=== PATIENT | male | born 1960 | race Caucasian/White ===

== ENCOUNTER 2024-07-29 17:04 | Inpatient (IN) | payer MEDICARE, MEDICAID, SELFPAY ==
[2024-07-29] VITALS (8 sets, daily range): BP systolic 137–176; BP diastolic 83–93; PULSE 91–936; RESP 17–24; TEMP 37.2–38; O2SAT 92–97; BMI 24.6
--- NOTE | 2024-07-29 17:33 | EKG_ITS ---
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
--- NOTE | 2024-07-29 17:33 | XR_ITS ---
Examination: AP chest single view Technique AP portable sitting chest single view Standing time: July 29, 2024 1647 hours Comparison May 03, 2023 INDICATION: Coughing beginning 3 days ago. FINDINGS: Retrocardiac gastric hernia Minimal rounding left ventricle Accentuation of basilar bronchovascular markings. No lobar pneumonia or pulmonary edema IMPRESSION: Mild basilar bronchitis pattern
--- NOTE | 2024-07-29 17:33 | PD.EDRME ---
Rapid Medical Screening Exam RME Arrival date/time: 07/29/24 17:04 Chief Complaint: Shortness of Breath/Dyspnea Time Seen by Provider: 07/29/24 17:26 Vital signs: Vital Signs Temperature 100.4 F 07/29/24 17:30 Pulse Rate 115 H 07/29/24 17:30 Respiratory Rate 24 H 07/29/24 17:30 Blood Pressure 176/93 H 07/29/24 17:30 Pulse Oximetry (%) 93 L 07/29/24 17:30 Oxygen Delivery Method Room Air 07/29/24 17:30 RME Narrative: Shortness of breath/asthma flare the past 3-4 days, fever started today.
[2024-07-29 18:21] LABS: Lactate (Lactic Acid) 1.1 mMol/L (0.4-2.0)
[2024-07-29 18:31] LABS: Basophils # (Auto) 0.1 Thou/mm3 (0.0-0.2); Basophils % (Auto) 1 % (0-2.5); Eosinophils # (Auto) 0.2 Thou/mm3 (0.0-0.5); Eosinophils % (Auto) 2 % (0-10); Hematocrit 42.7 % (41.0-53.0); Hemoglobin 14.9 g/dL (13.5-16.0); Immature Granulocytes % (Auto) 0 % (0-0); Immature Granulocytes Auto 0.02 Thou/mm3 (0.00-0.00); Lymphocytes # (Auto) 0.5 Thou/mm3 (1.0-4.8); Lymphocytes % (Auto) 6 % (10-50); Mean Corpuscular HGB Conc 34.9 g/dl (31.0-37.0); Mean Corpuscular Hemoglobin 31.9 pg (25.0-35.0); Mean Corpuscular Volume 91 fL (80-100); Monocytes # (Auto) 1.5 Thou/mm3 (0.0-0.8); Monocytes % (Auto) 18 % (0-12); Neutrophils # (Auto) 6.2 Thou/mm3 (1.8-7.7); Neutrophils % (Auto) 73 % (37-80); Nucleated Red Blood Cell % 0 /100 WBC (0); Platelet Count 265 Thou/mm3 (140-440); RDW Standard Deviation 47.8 fL (35.1-43.9); Red Blood Count 4.67 Miln/mm3 (4.50-5.90); White Blood Count 8.5 Thou/mm3 (3.8-10.6)
[2024-07-29 18:40] LABS: B-Type Natriuretic Peptide 20 pg/mL (0-100)
[2024-07-29 18:50] LABS: Alanine Aminotransferase 26 U/L (10-49); Albumin, Serum 4.5 gm/dL (3.4-4.8); Albumin/Globulin Ratio 1.6 (1.2-2.2); Alkaline Phosphatase 116 U/L (46-116); Anion Gap 9 (7-16); Aspartate Amino Transferase 29 U/L (0-34); BUN/Creatinine Ratio 8 Ratio (12-20); Bilirubin,Total 0.5 mg/dL (0.3-1.2); Blood Urea Nitrogen 8 mg/dL (9-23); Calcium 9.8 mg/dL (8.3-10.6); Calcium (Corrected) 9.8 mg/dL (8.5-10.1); Carbon Dioxide 23.8 mMol/L (20.0-31.0); Chloride 102 mMol/L (98-107); Estimated Creatinine Clearance 64.1 mL/min (>60); Globulin 2.8 gm/dL (2.3-3.5); Glucose 134 mg/dL (74-106); Osmolality,Calculated 270 (275-295); Potassium 3.9 mMol/L (3.4-5.1); Procalcitonin 0.12 ng/ml (0.0-0.49); Sodium 135 mMol/L (136-145); Total Protein 7.3 gm/dL (5.7-8.2); Troponin I < 0.020 ng/mL (0.0-0.045); eGFR > 60 See Note
[2024-07-29] MEDS: IBUPROFEN TAB 600 MG TABLET PO (19:09)
[2024-07-29] MEDS: cefTRIAXone/D5w 1gm IV premix 1 GM/50 ML BAG IV (19:18)
--- NOTE | 2024-07-29 19:22 | PD.EDSOB ---
ED SOB =RME/HPI General Chief Complaint: Shortness of Breath/Dyspnea Stated Complaint: SHORTNESS OF BREATH Time Seen by Provider: 07/29/24 17:26 Arrival date/time: 07/29/24 17:04 RME / HPI RME / HPI Narrative: Shortness of breath/asthma flare the past 3-4 days, fever started today. This section includes all my notes and documentations, including HPI, PE, and ED course. Jonathan Kelley MD HPI: 64-year-old male here with about a week history of worsening cough, productive cough, purulent sputum, and dyspnea. May have asthma and/or COPD. He also reports subjective fever and chills and bodyaches. No other complaints. ROS: All negative except as documented in HPI. Physical Exam: General: Alert and oriented. In moderate respiratory distress. Fever and hypoxia noted. Eyes: Conjunctivae and lids clear. ENT: No nasal congestion. Neck: Supple. Heart: RRR. Lungs: Moderate respiratory distress. Severely decreased air movement with diffuse wheezing. Abdomen: Soft and nontender. Back: No CVA tenderness. Skin: Warm and dry. Neuro: Alert and oriented X 3. I reviewed all diagnostic test results. My interpretation of the EKG is sinus rhythm with no acute ST?T changes. My interpretation of the chest x-ray is increased bronchial markings. Blood tests and urine tests unremarkable. COVID/influenza negative. At this point, diagnoses include acute respiratory failure with hypoxia and COPD exacerbation. Treatment here included IV fluid and Tylenol and ibuprofen and steroids and neb treatments and Rocephin and Zithromax. Significant improvement not noted. I discussed the case with our hospitalist. About the presentation and exam and diagnostics and treatments here. And need of further care in the hospital. Will accept the patient. Jonathan Kelley MD Related Data Home Medications ?Medication ?Instructions ?Recorded ?Confirmed albuterol sulfate 90 mcg/actuation 2 puff inhalation Q4H PRN SOB 06/04/20 07/30/24 aerosol inhaler loratadine 10 mg tablet (Claritin) 10 mg PO QDAY 06/04/20 07/30/24 amlodipine 10 mg tablet 10 mg PO QDAY 07/30/24 07/30/24 montelukast 10 mg tablet 10 mg PO QDAY 07/30/24 07/30/24 Previous Rx's ?Medication ?Instructions ?Recorded albuterol sulfate 90 mcg/actuation 1 puff inhalation Q6H PRN 05/03/23 aerosol inhaler (Ventolin HFA) shortness of breath or wheezing #6.7 grams Allergies Allergy/AdvReac Type Severity Reaction Status Date / Time No Known Allergies Allergy Verified 07/29/24 17:07 Course Quality Measures none Orders Category Date Time Status Bedside COVID-19 Antigen Test NOW Care 07/29/24 17:33 Active Bedside Influenza A&B Antigen Test NOW Care 07/29/24 17:34 Completed EKG (ED ONLY) *Do not use* NOW Care 07/29/24 17:33 Completed Saline [Insert IV] NOW Care 07/29/24 19:22 Active CXR [XR chest 1V] Stat Exams 07/29/24 17:33 Completed EKG (ED Only) Stat Exams 07/29/24 17:33 Draft BNP [B-Type Natriuretic Peptide] Stat Lab 07/29/24 18:10 Completed Blood Culture (Lab) Stat Lab 07/29/24 18:10 Received CBC Stat Lab 07/29/24 18:10 Completed CMP [Comprehensive Metabolic Panel] Stat Lab 07/29/24 18:10 Completed CRP [C-Reactive Protein] Stat Lab 07/29/24 18:10 Completed D-Dimer Stat Lab 07/29/24 18:10 Completed ESR [Sed Rate (ESR)] Stat Lab 07/29/24 18:10 Completed Free T4 (Free Thyroxine) Stat Lab 07/29/24 18:10 Completed Lactate (Lactic Acid) Stat Lab 07/29/24 18:10 Completed Magnesium Stat Lab 07/29/24 18:10 Completed Procalcitonin Stat Lab 07/29/24 18:10 Completed RSV [Respiratory Syncytial Virus Ag] Stat Lab 07/29/24 21:35 Completed TSH [Thyroid Stimulating Hormone] Stat Lab 07/29/24 18:10 Completed Troponin I Stat Lab 07/29/24 18:10 Completed UA, C/S IF [Urinalysis, C/S if Indicated] Stat Lab 07/29/24 21:35 Completed ALBUTEROL RT 0.5ml [Proventil Rt 0.5ml] Med 07/29/24 19:24 Discontinued 10 mg INH X1 ONE ALBUTEROL RT 5 ml [Proventil Rt 5 ml] Med 07/29/24 19:06 Discontinued 10 mg INH X1 ONE Acetaminophen Ivpb [Ofirmev Inj] Med 07/29/24 19:23 Discontinued 1,000 mg in 100 ml IV X1 Azithromycin Inj [Zithromax Inj] 500 mg Med 07/29/24 19:26 Discontinued Sodium Chloride 0.9% 250 ml [Ns] 250 ml IV X1 Dexamethasone Inj [Decadron Inj] Med 07/29/24 19:06 Discontinued 10 mg IV X1 ONE Ibuprofen Tab [Motrin Tab] Med 07/29/24 17:40 Discontinued 600 mg PO X1 ONE Ipratropium Declo Rt Charo [Atrovent Rt Charo] Med 07/29/24 19:06 Discontinued 1 mg INH X1 ONE Magnesium Sulfate 2 GM Ivpb [Magnesium Sulfate Ivpb] Med 07/29/24 19:23 Discontinued 2 gm in 50 ml IV X1 MethylPREDNISolone.* [SoluMEDROL Inj] Med 07/29/24 19:23 Discontinued 125 mg IVP X1 ONE Sodium Chloride 0.9% 1000 ml [Ns] 2,017 ml Med 07/29/24 17:38 Discontinued IV 2,017 mls/hr Sodium Chloride Rt Charo 0.9% [NS Rt Charo 0.9%] Med 07/29/24 19:24 Active 3 ml INH PRN PRN cefTRIAXone/D5w 1gm IV premix [Rocephin/D5w 1gm IV Med 07/29/24 17:38 Discontinued premix] 1 gm in 50 ml IV X1 Vital Signs Vital signs: Vital Signs Temperature 100.4 F 07/29/24 17:30 Pulse Rate 115 H 07/29/24 17:30 Respiratory Rate 24 H 07/29/24 17:30 Blood Pressure 176/93 H 07/29/24 17:30 Pulse Oximetry (%) 93 L 07/29/24 17:30 Oxygen Delivery Method Room Air 07/29/24 17:30 Shortness of Breath / Dyspnea Patient data External records reviewed:: [facility] previous records Clinical information provided by:: patient and EMS Social determinants that could affect healthcare access:: none Patient has the following chronic illnesses:: Asthma/COPD How is presenting disease/condition affected by chronic disease/condition?: exacerbated by Evaluation data The following diagnostics were reviewed and interpreted by me:: lab results, radiology exam(s) and EKG tracing(s) Lab and/or radiology exams considered but not ordered:: None Interpretation Summary: Respiratory failure and COPD exacerbation Medications / Prescriptions Medications or Prescriptions considered but not ordered:: None Medication administrations:: Medication Administration History Acetaminophen (Acetaminophen 325 Mg Tablet) 650 mg PO Q6H PRN PRN Reason: Fever >101.5 Stop: 08/28/24 22:26 Acetaminophen (Acetaminophen 325 Mg Tablet) 650 mg PO Q6H PRN PRN Reason: PAIN SCALE 1-3 (mild Stop: 08/28/24 22:31 Albuterol/Ipratropium (Albuterol/Ipratropium (Duoneb) Rt Charo 3 Ml Nebu) 3 ml INH Q4HRRT [facility] Stop: 08/28/24 22:59 Last Admin: 07/29/24 23:18 Dose: 3 ml Documented By: JULI Enoxaparin Sodium (Enoxaparin Sod Inj 40 Mg/0.4 Ml Syringe) 40 mg SC QDAY [facility] Stop: 08/13/24 08:59 Folic Acid (Folic Acid 1 Mg Tablet) 1 mg PO BID [facility] Stop: 08/04/24 08:59 Levofloxacin/Dextrose (Levaquin Ivpb) 750 mg in 150 mls @ 100 mls/hr IV QDAY [facility] Stop: 08/06/24 08:59 Labetalol HCl (Labetalol Inj 5 Mg/Ml Vial 20 Ml) 10 mg IVP Q2H PRN PRN Reason: SBP >180mmHg Stop: 08/28/24 22:37 Lorazepam (Lorazepam 0.5 Mg Tablet) 0.5 mg PO Q4HR PRN PRN Reason: CIWA Score 2-6 Stop: 08/03/24 23:17 Lorazepam (Lorazepam 2 Mg/Ml Vial) 1 mg IV X1 PRN PRN Reason: Breakthrough Agitation Lorazepam (Lorazepam 0.5 Mg Tablet) 1 mg PO Q4HR PRN PRN Reason: CIWA SCORE 7-11 Stop: 08/03/24 23:17 Lorazepam (Lorazepam 0.5 Mg Tablet) 2 mg PO Q4HR PRN PRN Reason: CIWA SCORE 12-15 Stop: 08/03/24 23:17 Methylprednisolone Sodium Succinate (Methylprednisolone Sod Succ 62.5 Mg/Ml 2ml Vial) 80 mg IVP QDAY [facility] Stop: 08/06/24 08:59 Ondansetron HCl (Ondansetron Inj 2 Mg/Ml Inj 2 Ml) 4 mg IV Q6H PRN; Protocol PRN Reason: NAUSEA OR VOMITING Stop: 08/28/24 22:26 Sodium Chloride (Sodium Chloride Rt Charo 0.9% 3 Ml Nebu) 3 ml INH PRN PRN PRN Reason: SOLN Stop: 08/28/24 19:23 Last Admin: 07/29/24 19:31 Dose: 3 ml Documented By: JULI Sodium Chloride (Sodium Chloride Rt Charo 0.9% 3 Ml Nebu) 3 ml INH PRN PRN PRN Reason: SOLN Stop: 08/28/24 22:26 Thiamine HCl (Thiamine 100 Mg Tablet) 100 mg PO BID [facility]YAN Stop: 08/03/24 23:29 Last Admin: 07/30/24 00:09 Dose: 100 mg Documented By: KG Discontinued Medications Albuterol (Albuterol Rt 25 Mg/5 Ml Nebu) 10 mg INH X1 ONE Stop: 07/29/24 19:07 Last Admin: 07/29/24 21:31 Dose: Not Given Documented By: ALYSSA Non-Admin Reason: Discontinued Albuterol (Albuterol Rt 2.5 Mg/0.5 Ml Nebu) 10 mg INH X1 ONE Stop: 07/29/24 19:25 Last Admin: 07/29/24 19:30 Dose: 10 mg Documented By: JULI Albuterol (Albuterol Rt 2.5 Mg/0.5 Ml Nebu) 2.5 mg INH Q4HRRT [facility]AN Stop: 08/28/24 22:59 Dexamethasone Sodium Phosphate (Dexamethasone Sod Phos Inj 10 Mg/Ml Vial) 10 mg IV X1 ONE Stop: 07/29/24 19:07 Last Admin: 07/29/24 19:24 Dose: 10 mg Documented By: BETZY Diphenhydramine HCl (Diphenhydramine 25 Mg Capsule) 25 mg PO X1 ONE Stop: 07/30/24 01:08 Sodium Chloride (Ns) 2,017 mls @ 2,017 mls/hr 30 ml/kg infuse over 60 min (2017 ml) IV .Q1H ONE; Protocol Stop: 07/29/24 18:37 Last Infusion: 07/29/24 20:51 Dose: Infused Documented By: Admin: 07/29/24 19:17 Dose: 2,017 mls/hr Documented By: BETZY Ceftriaxone Sodium/Dextrose (Rocephin/D5w 1gm Iv Premix) 1 gm in 50 mls @ 100 mls/hr IV X1 ONE Stop: 07/29/24 18:07 Last Infusion: 07/29/24 20:51 Dose: Infused Documented By: Infusion: 07/29/24 19:18 Dose: 100 mls/hr Documented By: Admin: 07/29/24 19:18 Dose: 100 mls/hr Documented By: BETZY Acetaminophen (Ofirmev Inj) 1,000 mg in 100 mls @ 250 mls/hr IV X1 ONE Stop: 07/29/24 19:46 Last Infusion: 07/29/24 20:52 Dose: Infused Documented By: Infusion: 07/29/24 19:50 Dose: 250 mls/hr Documented By: Admin: 07/29/24 19:35 Dose: 250 mls/hr Documented By: BETZY Magnesium Sulfate (Magnesium Sulfate Ivpb) 2 gm in 50 mls @ 25 mls/hr IV X1 ONE Stop: 07/29/24 21:22 Last Infusion: 07/29/24 20:05 Dose: Infused Documented By: Admin: 07/29/24 19:41 Dose: 25 mls/hr Documented By: BETZY Azithromycin 500 mg/ Sodium (Chloride) 250 mls @ 250 mls/hr IV X1 ONE Stop: 07/29/24 20:25 Last Infusion: 07/29/24 20:50 Dose: Infused Documented By: Admin: 07/29/24 19:36 Dose: 250 mls/hr Documented By: BETZY Levofloxacin/Dextrose (Levaquin Ivpb) 750 mg in 150 mls @ 100 mls/hr IV X1 ONE Stop: 07/30/24 00:29 Last Admin: 07/30/24 00:10 Dose: 100 mls/hr Documented By: ALTON Ibuprofen (Ibuprofen Tab 600 Mg Tablet) 600 mg PO X1 ONE Stop: 07/29/24 17:41 Last Admin: 07/29/24 19:09 Dose: 600 mg Documented By: BETZY Ipratropium Declo (Ipratropium Rt 0.5 Mg/ 2.5 Ml Nebu) 1 mg INH X1 ONE Stop: 07/29/24 19:07 Last Admin: 07/29/24 19:31 Dose: 1 mg Documented By: NE Methylprednisolone Sodium Succinate (Methylprednisolone Sod Succ 62.5 Mg/Ml 2ml Vial) 125 mg IVP X1 ONE Stop: 07/29/24 19:24 Last Admin: 07/29/24 19:42 Dose: 125 mg Documented By: MP Sodium Chloride (Sodium Chloride Rt 10% 15 Ml Nebu) 5 ml INH X1 ONE Stop: 07/29/24 22:41 Last Admin: 07/29/24 23:11 Dose: 5 ml Documented By: NE IV fluid and Tylenol and ibuprofen and steroids and neb treatments and Rocephin and Zithromax Consultations Consultation(s) initiated? (list below): No Diagnosis Shortness of Breath Differential Diagnosis: acute exacerbation of chronic obstructive airways disease, congestive heart failure, community acquired pneumonia, asthma with exacerbation and pulmonary embolism Most likely diagnosis given after review of the tests above:: Respiratory failure and COPD exacerbation Admission Indicated Admission indicated?: indicated Explain why admission is indicated or not indicated:: Respiratory failure and COPD exacerbation Admission Request Was there a request for admission?: Yes Admission Attestation Admission request attestation: Discussed case with Hospitalist service regarding admission. Discussed patients ED course, exam findings, labs, and radiology results. The Hospitalist [agrees] to accept the patient for admission. Disposition Plan Disposition Plan: Admit Discharge Plan Plan Patient Disposition: Admit Acute Care w/in Hospital Problem List Clinical Impression: Acute respiratory failure with hypoxia, COPD exacerbation
[2024-07-29] MEDS: DEXAMETHASONE SOD PHOS INJ 10 MG/ML VIAL IV (19:24)
[2024-07-29] MEDS: ALBUTEROL RT 2.5 MG/0.5 ML NEBU 10 MG INH (19:30)
[2024-07-29] MEDS: IPRATROPIUM RT 0.5 MG/ 2.5 ML NEBU 1 MG INH (19:31)
[2024-07-29] MEDS: SODIUM CHLORIDE RT SOL 0.9% 3 ML NEBU INH (19:31)
[2024-07-29] MEDS: ACETAMINOPHEN IVPB 1,000 MG/100 ML VIAL 250 MG IV (19:35)
[2024-07-29] MEDS: AZITHROMYCIN INJ 500 MG in SODIUM CHLORIDE 0.9% 250 ML 250 ML 250 MG IV (19:36)
[2024-07-29] MEDS: Magnesium Sulfate 2 GM Ivpb 2 GM/50 ML BAG IV (19:41)
[2024-07-29] MEDS: MethylPREDNISolone SOD SUCC 62.5 MG/ML 2ML VIAL 125 MG IVP (19:42)
[2024-07-29 19:46] LABS: Sed Rate (ESR) 23 mm/hr (0-20)
[2024-07-29 20:07] LABS: D-Dimer < 250 ng/mL (<600)
[2024-07-29 20:50] LABS: C-Reactive Protein 2.4 mg/dL (0.0-0.9); Magnesium 1.8 mg/dL (1.6-2.6); Thyroid Stimulating Hormone 0.49 uIU/mL (0.55-4.78)
[2024-07-29 21:41] LABS: Collection Type, Urine Clean Catch; Squamous Epithelial Cell,Urine 0 /hpf (0-5)
[2024-07-29 21:51] LABS: Bilirubin,Urine Negative (Negative); Blood,Urine Negative (Negative); Clarity,Urine Clear (Clear/Hazy); Color,Urine Lt-Yellow (Lt Yel-Yel); Culture Indicated,Urine Not Indicated; Glucose, Urine Negative (Negative); Ketones,Urine Trace (Negative); Leukocyte Esterase,Urine Negative (Negative); Nitrite,Urine Negative (Negative); Protein,Urine Negative (Neg - Trace); RBC,Urine 1 /hpf (0-3); Specific Gravity,Urine 1.009 (1.001-1.035); Urobilinogen,Urine Negative mg/dL (0.0-1.0); WBC,Urine < 1 /hpf (0-5)
[2024-07-29 22:23] LABS: Respiratory Syncytial Virus Ag Negative (Negative)
--- NOTE | 2024-07-29 23:00 | ESHP_ITS ---
<Statement entered by Aram Marroquin MD - 07/30/24 05:11> I reviewed above note and agree with findings and plans. I have also personally examined the patient with medicine team and went over assessment and plan with medical team including compensation intern and resident physician. Documentation for date of: 07/29/24 HPI History of Present Illness Chief complaint: SOB and fever History of present illness: HPI: a 64 years old male patient with past medical hx of asthma questionable COPD not on oxygen at home, presented to the ED due to SOB for the past 10 days. Patient reported that he started to feel SOB and wheezing for the past one week and a half, he mentioned that he has been using his inhalers and nebulizer however with no benefit. He went to his PCP in which he was prescribed prednisone for 5 days, there was mild improvement, however he symptoms relapced. Today patient started to experience fever and worsening of his symptoms that's when he decided to come to the ED. Of note patient reported that he experiences similar symtopms annually during the winter in which he uses his inhalor daily. Patient denied any chest pain, orthopnea, PND or lower limb edema. Patient has reported that his coworker has returned from the [facility] last week and he has similar sx. ED course: Patient on presentation met sepsis criteria with HR of 115 and RR 24, Temp of 100.4, and O2 sat 89 on room air. His pertinent labs were ESR of 23, CRP 2.4, S.Cr normal at 1.0., D-dimer was normal, pro-beverly was nml, and TSH was low at 0.49. CXR showed bronchitis. PMH:Pre-diabetes, ?HTN PSX:Hernia repairs PFX:No familiy memeber with similar sx Social hx: Alcohol:Drink one beer a day Tobacco:Denied Illicit drugs:Smoke weed daily for 40 years Allergies:NKMA Exam Vital Signs Temp Pulse Resp BP Pulse Ox O2 Del Method O2 Flow Rate 99.0 F 113 H 18 149/86 H 94 L Room Air 2 07/29/24 20:54 07/29/24 20:54 07/29/24 20:54 07/29/24 20:54 07/29/24 20:54 07/29/24 20:54 07/29/24 19:31 Narrative Exam GEN: AOx3, able to speak full sentences HEENT: NC/AC, PERRLA, oral mucosa moist, neck supple CVS: RRR, S1-S2 present, no murmurs appreciated RESP: Wheezing bilaterally GI: soft,non distended, non tender, NBS MSK: able to move all 4 limbs, no lower extremity edema SKIN: warm and dry GENERATOR SWITCHBOARD OPERATOR: CN II-XII and Sensation grossly intact. Results: Labs 07/29/24 18:10 07/29/24 18:10 Labs: Short CBC 07/29/24 Range/Units 18:10 WBC 8.5 (3.8-10.6) Thou/mm3 Hgb 14.9 (13.5-16.0) g/dL Hct 42.7 (41.0-53.0) % Plt Count 265 (140-440) Thou/mm3 BMP 07/29/24 18:10 Sodium 135 L Potassium 3.9 Chloride 102 Carbon Dioxide 23.8 BUN 8 L Creatinine 1.0 Glucose 134 H Calcium 9.8 Cardiac Enzymes 07/29/24 Range/Units 18:10 Troponin I < 0.020 (0.0-0.045) ng/mL Liver Function 07/29/24 Range/Units 18:10 Total Bilirubin 0.5 (0.3-1.2) mg/dL AST 29 (0-34) U/L ALT 26 (10-49) U/L Alkaline Phosphatase 116 (46-116) U/L Albumin 4.5 (3.4-4.8) gm/dL Urine 07/29/24 Range/Units 21:35 Urine Color Lt-Yellow (Lt Yel-Yel) Urine Clarity Clear (Clear/Hazy) Urine pH 7.0 (5.0-7.0) Ur Specific [place] 1.009 (1.001-1.035) Urine Protein Negative (Neg - Trace) Urine Glucose (UA) Negative (Negative) Quality Measures Quality Measures VTE prophylaxis Advance care planning discussed with:: patient Medications Home Medications and Allergies Home Medications ?Medication ?Instructions ?Recorded ?Confirmed ?Type albuterol sulfate 90 mcg/actuation 2 puff inhalation Q 4H PRN SOB 06/04/20 06/04/20 History aerosol inhaler loratadine 10 mg tablet (Claritin) 10 mg PO QDAY 06/0406/04/20 History Allergies Allergy/AdvReac Type Severity Reaction Status Date / Time No Known Allergies Allergy Verified 07/29/24 17:07 Visit Medications Acetaminophen (Acetaminophen 325 Mg Tablet) 650 mg PO Q6H PRN PRN Reason: Fever >101.5 Stop: 08/28/24 22:26 Acetaminophen (Acetaminophen 325 Mg Tablet) 650 mg PO Q6H PRN PRN Reason: PAIN SCALE 1-3 (mild Stop: 08/28/24 22:31 Albuterol/Ipratropium (Albuterol/Ipratropium (Duoneb) Rt Charo 3 Ml Nebu) 3 ml INH Q4HRRT [facility] Stop: 08/28/24 22:59 Enoxaparin Sodium (Enoxaparin Sod Inj 40 Mg/0.4 Ml Syringe) 40 mg SC QDAY [facility] Stop: 08/13/24 08:59 Levofloxacin/Dextrose (Levaquin Ivpb) 750 mg in 150 mls @ 100 mls/hr IV QDAY [facility] Stop: 08/06/24 08:59 Levofloxacin/Dextrose (Levaquin Ivpb) 750 mg in 150 mls @ 100 mls/hr IV X1 ONE Stop: 07/30/24 00:29 Labetalol HCl (Labetalol Inj 5 Mg/Ml Vial 20 Ml) 10 mg IVP Q2H PRN PRN Reason: SBP >180mmHg Stop: 08/28/24 22:37 Methylprednisolone Sodium Succinate (Methylprednisolone Sod Succ 62.5 Mg/Ml 2ml Vial) 80 mg IVP QDAY [facility] Stop: 08/06/24 08:59 Ondansetron HCl (Ondansetron Inj 2 Mg/Ml Inj 2 Ml) 4 mg IV Q6H PRN; Protocol PRN Reason: NAUSEA OR VOMITING Stop: 08/28/24 22:26 Sodium Chloride (Sodium Chloride Rt Charo 0.9% 3 Ml Nebu) 3 ml INH PRN PRN PRN Reason: SOLN Stop: 08/28/24 19:23 Last Admin: 07/29/24 19:31 Dose: 3 ml Sodium Chloride (Sodium Chloride Rt Charo 0.9% 3 Ml Nebu) 3 ml INH PRN PRN PRN Reason: SOLN Stop: 08/28/24 22:26 Discontinued Medications Albuterol (Albuterol Rt 25 Mg/5 Ml Nebu) 10 mg INH X1 ONE Stop: 07/29/24 19:07 Last Admin: 07/29/24 21:31 Dose: Not Given Albuterol (Albuterol Rt 2.5 Mg/0.5 Ml Nebu) 10 mg INH X1 ONE Stop: 07/29/24 19:25 Last Admin: 07/29/24 19:30 Dose: 10 mg Albuterol (Albuterol Rt 2.5 Mg/0.5 Ml Nebu) 2.5 mg INH Q4HRRT [facility] Stop: 08/28/24 22:59 Dexamethasone Sodium Phosphate (Dexamethasone Sod Phos Inj 10 Mg/Ml Vial) 10 mg IV X1 ONE Stop: 07/29/24 19:07 Last Admin: 07/29/24 19:24 Dose: 10 mg Sodium Chloride (Ns) 2,017 mls @ 2,017 mls/hr 30 ml/kg infuse over 60 min (2017 ml) IV .Q1H ONE; Protocol Stop: 07/29/24 18:37 Last Infusion: 07/29/24 20:51 Dose: Infused Ceftriaxone Sodium/Dextrose (Rocephin/D5w 1gm Iv Premix) 1 gm in 50 mls @ 100 mls/hr IV X1 ONE Stop: 07/29/24 18:07 Last Infusion: 07/29/24 20:51 Dose: Infused Acetaminophen (Ofirmev Inj) 1,000 mg in 100 mls @ 250 mls/hr IV X1 ONE Stop: 07/29/24 19:46 Last Infusion: 07/29/24 20:52 Dose: Infused Magnesium Sulfate (Magnesium Sulfate Ivpb) 2 gm in 50 mls @ 25 mls/hr IV X1 ONE Stop: 07/29/24 21:22 Last Infusion: 07/29/24 20:05 Dose: Infused Azithromycin 500 mg/ Sodium (Chloride) 250 mls @ 250 mls/hr IV X1 ONE Stop: 07/29/24 20:25 Last Infusion: 07/29/24 20:50 Dose: Infused Ibuprofen (Ibuprofen Tab 600 Mg Tablet) 600 mg PO X1 ONE Stop: 07/29/24 17:41 Last Admin: 07/29/24 19:09 Dose: 600 mg Ipratropium [place] (Ipratropium Rt 0.5 Mg/ 2.5 Ml Nebu) 1 mg INH X1 ONE Stop: 07/29/24 19:07 Last Admin: 07/29/24 19:31 Dose: 1 mg Methylprednisolone Sodium Succinate (Methylprednisolone Sod Succ 62.5 Mg/Ml 2ml Vial) 125 mg IVP X1 ONE Stop: 07/29/24 19:24 Last Admin: 07/29/24 19:42 Dose: 125 mg Sodium Chloride (Sodium Chloride Rt 10% 15 Ml Nebu) 5 ml INH X1 ONE Stop: 07/29/24 22:41 Assessment & Plan Plan Summary: a 64 years old male patient with past medical hx of asthma questionable COPD not on oxygen at home, presented to the ED due to SOB for the past 10 days. Patient reported that he started to feel SOB and wheezing for the past one week and a half, he mentioned that he has been using his inhalers and nebulizer however with no benefit. Patient was admitted for Tx of AHRF 2/2 COPD exacerbation. #AHRF #COPD exacerbation #Hx of Asthma Patient presented with worsening wheezing over that past 3 moths since the winter started. He reported that he was diagnosed with asthma since he was 7 years old. He reported that he recently was diagnosed with COPD 2/2 to his weed smoking for the past 40 years. Now he came with SOB and wheezing, not relieved by inhalers and keep worsening especially for the last week. Met sepsis criteria with fever, tachycardia and temp, His boss was recently returned from the [facility] and has been experiencing similar symptoms. No hx of incarceration or TB exposure, COVID, RSV, and Influenza A&B were negative plan - Admit observation - O2 as needed to keep O2 88-92% - Duonebs Q4HRRT - SolMedrol 80mg Qday - Levofloxxacin 750mg Qday - Cocci screening - MRSA screening - Quantiferon TB screening - F/U on the Blood c/s, sputum c/s, urine c/s #Hx of HTN pending med Rec plan - Labetalol 10mg PRN Q2h if SBP more than 180mmHg #hx of daily alcohol use plan - Put patient on CIWA pro-actively Hospital Maintenance: FEN:Cardiac diet DVT ppx:Enoxaparin GI ppx: Not indicated IV lines:PIV [place]:No Code status:Full Dispo:Med-Tele - Patient's plan and care discussed with my attending, Dr. Lopez Harding MD Internal Medicine PGY-2
[2024-07-29] MEDS: SODIUM CHLORIDE RT 10% 15 ML NEBU 5 ML INH (23:11)
[2024-07-29] MEDS: ALBUTEROL/IPRATROPIUM (Duoneb) RT SOL 3 ML NEBU INH (23:18)
[2024-07-29 23:21] LABS: Free T4 (Free Thyroxine) 1.11 ng/dL (0.89-1.76)
[2024-07-30] VITALS (17 sets, daily range): BP systolic 131–175; BP diastolic 74–98; PULSE 67–122; RESP 16–94; TEMP 36.1–38.9; O2SAT 90–98
[2024-07-30] MEDS: THIAMINE 100 MG TABLET PO ×3 (00:09→21:38)
[2024-07-30] MEDS: LEVOFLOXACIN/D5W 750MG IVPB 750 MG/150 ML BAG 100 MG IV ×2 (00:10→21:37)
[2024-07-30] MEDS: DiphenhydrAMINE 25 MG CAPSULE PO (01:17)
[2024-07-30] MEDS: ACETAMINOPHEN 325 MG TABLET 650 MG PO ×3 (01:20→15:32)
[2024-07-30] MEDS: ALBUTEROL/IPRATROPIUM (Duoneb) RT SOL 3 ML NEBU INH ×6 (02:19→22:25)
[2024-07-30 06:15] LABS: Basophils % (Auto) 1 % (0-2.5); Eosinophils % (Auto) 0 % (0-10); Hematocrit 40.4 % (41.0-53.0); Hemoglobin 13.9 g/dL (13.5-16.0); Immature Granulocytes % (Auto) 0 % (0-0); Immature Granulocytes Auto 0.02 Thou/mm3 (0.00-0.00); Lymphocytes # (Auto) 0.4 Thou/mm3 (1.0-4.8); Lymphocytes % (Auto) 9 % (10-50); Mean Corpuscular HGB Conc 34.4 g/dl (31.0-37.0); Mean Corpuscular Hemoglobin 32.3 pg (25.0-35.0); Mean Corpuscular Volume 94 fL (80-100); Monocytes # (Auto) 0.2 Thou/mm3 (0.0-0.8); Monocytes % (Auto) 3 % (0-12); Neutrophils # (Auto) 4.2 Thou/mm3 (1.8-7.7); Neutrophils % (Auto) 87 % (37-80); Nucleated Red Blood Cell % 0 /100 WBC (0); Platelet Count 268 Thou/mm3 (140-440); RDW Standard Deviation 50.4 fL (35.1-43.9); Red Blood Count 4.31 Miln/mm3 (4.50-5.90); White Blood Count 4.9 Thou/mm3 (3.8-10.6)
[2024-07-30 06:27] LABS: INR 1.1 (0.9-1.3); Prothrombin Time 11.9 Seconds (9.0-12.2)
[2024-07-30 06:37] LABS: Alanine Aminotransferase 24 U/L (10-49); Albumin, Serum 4.1 gm/dL (3.4-4.8); Albumin/Globulin Ratio 1.6 (1.2-2.2); Alkaline Phosphatase 97 U/L (46-116); Anion Gap 10 (7-16); Aspartate Amino Transferase 26 U/L (0-34); BUN/Creatinine Ratio 10 Ratio (12-20); Bilirubin,Total 0.3 mg/dL (0.3-1.2); Blood Urea Nitrogen 9 mg/dL (9-23); Calcium 8.7 mg/dL (8.3-10.6); Calcium (Corrected) 8.7 mg/dL (8.5-10.1); Carbon Dioxide 23.5 mMol/L (20.0-31.0); Chloride 106 mMol/L (98-107); Creatinine (Component) 0.9 mg/dL (0.6-1.3); Estimated Creatinine Clearance 4.8 mL/min (>60); Globulin 2.5 gm/dL (2.3-3.5); Glucose 171 mg/dL (74-106); Osmolality,Calculated 280 (275-295); Phosphorous 2.3 mg/dL (2.4-5.1); Potassium 4.8 mMol/L (3.4-5.1); Sodium 139 mMol/L (136-145); Total Protein 6.6 gm/dL (5.7-8.2); eGFR > 60 See Note
[2024-07-30] MEDS: ENOXAPARIN SOD INJ 40 MG/0.4 ML SYRINGE SC (09:31)
[2024-07-30] MEDS: FOLIC ACID 1 MG TABLET PO ×2 (09:31→21:37)
[2024-07-30] MEDS: amLODIPine BESYLATE 5 MG TABLET 10 MG PO (09:32)
[2024-07-30 09:53] LABS: Quantiferon-TB* See Sep Rpt
--- NOTE | 2024-07-30 10:00 | CHAP ---
Patient was visited by the Spiritual Care Volunteer who prayed for them. (Volunteer was in the hospital from 9:29-c10:00)
[2024-07-30] MEDS: LORazepam 0.5 MG TABLET PO ×2 (13:38→23:40)
[2024-07-30 14:24] LABS: Cocci Serology, IgM Negative (Negative)
--- NOTE | 2024-07-30 16:09 | PC.SS ---
Follow up note: Receiving breathing treatments and IV antibiotic.
--- NOTE | 2024-07-30 16:34 | PC.NURSE ---
Fausto notified me patient had a fever of 102. I put patient on 2L nasal canula patient O2 down to 90. I gave patient tylenol and started cooling measures. I called the doctors and notified them about patients fever. Also notified them patient and daughter Zee wanting to speak to a doctor. Doctors came to bedside and answered all questions. Will continue to monitor patient.
--- NOTE | 2024-07-30 16:42 | PC.NURSE ---
Patients fever down to 98.9. Will continue to monitor patient.
--- NOTE | 2024-07-30 16:48 | XR_ITS ---
Examination: CT chest, without intravenous contrast. Sagittal and coronal 2-D reconstructions. Exam date and time: July 30, 2024 2030 hours INDICATIONS: Increasing shortness of breath today CTDI:vol (mGy) 8.38 DLP: (mGycm) 342 Technique: Multiple 3.0 mm axial sections of the chest to been obtained. Bone and lung density settings are obtained. Sagittal and coronal 2-D reconstructions have been obtained. Low dose protocols were performed. One or more of the following dose reduction techniques were used; automated exposure control, adjustment of the mA and/or KV according to patient size, use of iterative reconstruction technique. Findings: Small nodular opacities in the right lower lobe most consistent with mild pneumonia No pulmonary edema Thoracic aorta pulmonary arteries intact Large retrocardiac gastric hernia The visualized liver or splenic lesion No hydronephrosis Moderate osteopenia IMPRESSION: Mild nodular parenchymal disease right base most consistent with pneumonia
--- NOTE | 2024-07-30 17:24 | ESPR_ITS ---
Documentation for date of: 07/30/24 Subjective Subjective Interval history: No acute events overnight.?Patient seen and examined at bedside this AM.?Patient had concerns of headache which was not relieved by Tylenol. Per nursing, patient's daughter had many questions. Resident team came to bedside and answered all questions to satisfaction.?Patient was endorsing about 30 lb weight loss since [address] chest without contrast ordered to rule out any malignancy or masses. Labs and vitals were reviewed.?No further complaints at this time. Review of systems otherwise negative except what is mentioned above. Exam Vital Signs Temp Pulse Resp BP Pulse Ox O2 Del Method O2 Flow Rate 98.9 F 111 H 18 151/92 H 90 L Room Air 2 07/30/24 16:32 07/30/24 16:00 07/30/24 16:00 07/30/24 16:00 07/30/24 16:00 07/30/24 08:00 07/29/24 19:31 Narrative Exam GEN: AOx3, able to speak full sentences HEENT: NC/AC, PERRLA, oral mucosa moist, neck supple CVS: RRR, S1-S2 present, no murmurs appreciated RESP: Wheezing bilaterally GI: soft,non distended, non tender, NBS MSK: able to move all 4 limbs, no lower extremity edema SKIN: warm and dry SIGNAL MANAGER: CN II-XII and Sensation grossly intact. Objective Labs 07/31/24 04:59 07/31/24 04:59 Labs: Laboratory Results - last 24 hr 07/29/24 07/29/24 07/30/24 18:10 21:35 05:44 WBC 8.5 4.9 D RBC 4.67 4.31 L Hgb 14.9 13.9 Hct 42.7 40.4 L MCV 91 94 MCH 31.9 32.3 MCHC 34.9 34.4 RDW Std Deviation 47.8 H 50.4 H Plt Count 265 268 Neut % (Auto) 73 87 H Lymph % (Auto) 6 L 9 L [place] % (Auto) 18 H 3 Eos % (Auto) 2 0 Baso % (Auto) 1 1 Neut # (Auto) 6.2 4.2 Lymph # (Auto) 0.5 L 0.4 L [place] # (Auto) 1.5 H 0.2 Eos # (Auto) 0.2 0.0 Baso # (Auto) 0.1 0.0 Immature Gran # (Auto) 0.02 H 0.02 H Absolute Nucleated RBC 0.00 0.00 Immature Gran % 0 0 Nucleated RBC % 0 0 ESR 23 H PT 11.9 INR 1.1 APTT 26.0 D-Dimer < 250 Sodium 135 L 139 Potassium 3.9 4.8 D Chloride 102 106 Carbon Dioxide 23.8 23.5 Anion Gap 9 10 BUN 8 L 9 Creatinine 1.0 0.9 Estim Creat Clear Calc 64.1 4.8 L eGFR > 60 > 60 BUN/Creatinine Ratio 8 L 10 L Glucose 134 H 171 H Calculated Osmolality 270 L 280 Lactic Acid 1.1 Calcium 9.8 8.7 Corrected Calcium 9.8 8.7 Phosphorus 2.3 L Magnesium 1.8 2.0 Total Bilirubin 0.5 0.3 AST 29 26 ALT 26 24 Alkaline Phosphatase 116 97 Troponin I < 0.020 C-Reactive Prot, Quant 2.4 H B-Natriuretic Peptide 20 Total Protein 7.3 6.6 Albumin 4.5 4.1 Globulin 2.8 2.5 Albumin/Globulin Ratio 1.6 1.6 Procalcitonin 0.12 TSH 0.49 L Free T4 1.11 Ur Collection Type Clean Catch Urine Color Lt-Yellow Urine Clarity Clear Urine pH 7.0 Ur Specific [place] 1.009 Urine Protein Negative Urine Glucose (UA) Negative Urine Ketones Trace Urine Blood Negative Urine Nitrite Negative Urine Bilirubin Negative Urine Urobilinogen (Auto) Negative Ur Leukocyte Esterase Negative Urine RBC 1 Urine WBC < 1 Ur Squamous Epith Cells 0 Urine Bacteria None Ur Culture Indicated? Not Indicated Coccidioides IgM Ab Negative RSV Rapid Negative Quality Measures Quality Measures none Advance care planning discussed with:: patient Assessment & Plan Assessment Current Active Medications: Generic Name Dose Route Start Last Admin Trade Name Freq PRN Reason Stop Dose Admin Acetaminophen 650 mg 07/29/24 22:27 07/30/24 15:32 Acetaminophen 325 Mg Tablet PO 08/28/24 22:26 650 mg Q6H PRN Administration Fever >101.5 Acetaminophen 650 mg 07/29/24 22:32 07/30/24 09:28 Acetaminophen 325 Mg Tablet PO 08/28/24 22:31 650 mg Q6H PRN Administration PAIN SCALE 1-3 (mild Albuterol/Ipratropium 3 ml 07/29/24 23:00 07/30/24 14:26 Albuterol/Ipratropium (Duoneb) Rt Charo 3 Ml Nebu INH 08/28/24 22:59 3 ml Q4HRRT RYAN Administration Amlodipine Besylate 10 mg 07/30/24 09:00 07/30/24 09:32 Amlodipine Besylate 5 Mg Tablet PO 08/29/24 08:59 10 mg QDAY RYAN Administration Enoxaparin Sodium 40 mg 07/30/24 09:00 07/30/24 09:31 Enoxaparin Sod Inj 40 Mg/0.4 Ml Syringe SC 08/13/24 08:59 40 mg QDAY RYAN Administration Folic Acid 1 mg 07/30/24 09:00 07/30/24 09:31 Folic Acid 1 Mg Tablet PO 08/04/24 08:59 1 mg BID RYAN Administration Levofloxacin/Dextrose 750 mg in 150 mls @ 100 mls/hr 07/30/24 21:00 Levaquin Ivpb IV 08/06/24 20:59 HS [facility] Labetalol HCl 10 mg 07/29/24 22:38 Labetalol Inj 5 Mg/Ml Vial 20 Ml IVP 08/28/24 22:37 Q2H PRN SBP >180mmHg Lorazepam 0.5 mg 07/29/24 23:18 07/30/24 13:38 Lorazepam 0.5 Mg Tablet PO 08/03/24 23:17 0.5 mg Q4HR PRN Administration CIWA Score 2-6 Lorazepam 1 mg 07/29/24 23:18 Lorazepam 2 Mg/Ml Vial IV X1 PRN Breakthrough Agitation Lorazepam 1 mg 07/29/24 23:18 Lorazepam 0.5 Mg Tablet PO 08/03/24 23:17 Q4HR PRN CIWA SCORE 7-11 Lorazepam 2 mg 07/29/24 23:18 Lorazepam 0.5 Mg Tablet PO 08/03/24 23:17 Q4HR PRN CIWA SCORE 12-15 Methylprednisolone Sodium Succinate 40 mg 07/31/24 09:00 Methylprednisolone Sod Succ 40 Mg Vial IVP 08/07/24 08:59 QDAY RYAN Ondansetron HCl 4 mg 07/29/24 22:27 Ondansetron Inj 2 Mg/Ml Inj 2 Ml IV 08/28/24 22:26 Q6H PRN NAUSEA OR VOMITING Protocol Sodium Chloride 3 ml 07/29/24 22:27 Sodium Chloride Rt Charo 0.9% 3 Ml Nebu INH 08/28/24 22:26 PRN PRN SOLN Thiamine HCl 100 mg 07/29/24 23:30 07/30/24 09:32 Thiamine 100 Mg Tablet PO 08/03/24 23:29 100 mg BID RYAN Administration Plan Summary: a 64 years old male patient with past medical hx of asthma questionable COPD not on oxygen at home, presented to the ED due to SOB for the past 10 days. Patient reported that he started to feel SOB and wheezing for the past one week and a half, he mentioned that he has been using his inhalers and nebulizer however with no benefit. Patient was admitted for Tx of AHRF 2/2 COPD exacerbation. #Acute hypoxic respiratory failure #COPD exacerbation #History of asthma Patient presented with worsening wheezing over that past 3 moths since the winter started. He reported that he was diagnosed with asthma since he was 7 years old. He reported that he recently was diagnosed with COPD 2/2 to his weed smoking for the past 40 years. Now he came with SOB and wheezing, not relieved by inhalers and keep worsening especially for the last week. Met sepsis criteria with fever, tachycardia and temp, His boss was recently returned from the [facility] and has been experiencing similar symptoms. No hx of incarceration or TB exposure, COVID, RSV, and Influenza A&B were negative plan - O2 as needed to keep O2 88-92% - Duonebs Q4HRRT - SolMedrol 80mg Qday - IV levofloxacin 750mg Qday - Cocci screening - MRSA screening - Quantiferon TB screening - F/U on the Blood c/s, sputum c/s, urine c/s - CT chest non contrast was ordered as patient was endorsing some weight loss #History of hypertension - Continue home amlodipine 10 mg qday #History of alcohol use disorder - [facility] protocol Hospital Maintenance: FEN:Cardiac diet DVT ppx:Enoxaparin GI ppx: Not indicated IV lines:PIV R[place]dale:No Code status:Full Dispo:Med-Tele Patient plan of care was discussed with the attending physician, Dr. Mortensen. Lilly Wills, PGY-2 Attending Provider Attestation/Addendum Keyla Gonzales DO, attest that I was physically present for the levin portions of the service and evaluated the patient with the resident and I reviewed and discussed the case with the resident and agree with the resident's findings and plans of care as documented above Patient remains on 2l/NC and in no respiratory distress. Patient is concerned about environmental exposures that may have aggravated his current respiratory issues. Will order CT chest also to rule out any other causes. Continue with current management of acute COPD exacerbation with steroids and breathing treatments. Patient states he does not smoke tobacco, but admits to marijuana use
--- NOTE | 2024-07-30 20:25 | PC.NURSE ---
Pt taken to CT scan
--- NOTE | 2024-07-30 20:35 | PC.NURSE ---
Pt back from CT
[2024-07-30] MEDS: traZODone HCL 50 MG TABLET PO (21:37)
[2024-07-30] MEDS: IBUPROFEN TAB 600 MG TABLET PO (21:38)
[2024-07-31] VITALS (15 sets, daily range): BP systolic 104–154; BP diastolic 70–104; PULSE 91–107; RESP 16–94; TEMP 36.3–37.3; O2SAT 94–98
[2024-07-31] MEDS: ALBUTEROL/IPRATROPIUM (Duoneb) RT SOL 3 ML NEBU INH ×6 (02:45→22:45)
[2024-07-31 05:58] LABS: Basophils % (Auto) 0 % (0-2.5); Eosinophils % (Auto) 0 % (0-10); Hematocrit 39.1 % (41.0-53.0); Hemoglobin 13.4 g/dL (13.5-16.0); Immature Granulocytes % (Auto) 0 % (0-0); Immature Granulocytes Auto 0.03 Thou/mm3 (0.00-0.00); Lymphocytes % (Auto) 13 % (10-50); Mean Corpuscular HGB Conc 34.3 g/dl (31.0-37.0); Mean Corpuscular Hemoglobin 32.1 pg (25.0-35.0); Mean Corpuscular Volume 94 fL (80-100); Monocytes # (Auto) 1.3 Thou/mm3 (0.0-0.8); Monocytes % (Auto) 17 % (0-12); Neutrophils # (Auto) 5.5 Thou/mm3 (1.8-7.7); Neutrophils % (Auto) 70 % (37-80); Nucleated Red Blood Cell % 0 /100 WBC (0); Platelet Count 321 Thou/mm3 (140-440); RDW Standard Deviation 50.4 fL (35.1-43.9); Red Blood Count 4.18 Miln/mm3 (4.50-5.90); White Blood Count 7.9 Thou/mm3 (3.8-10.6)
[2024-07-31 06:27] LABS: Alanine Aminotransferase 26 U/L (10-49); Albumin/Globulin Ratio 1.8 (1.2-2.2); Alkaline Phosphatase 81 U/L (46-116); Anion Gap 8 (7-16); Aspartate Amino Transferase 45 U/L (0-34); BUN/Creatinine Ratio 14 Ratio (12-20); Bilirubin,Total 0.2 mg/dL (0.3-1.2); Blood Urea Nitrogen 14 mg/dL (9-23); Calcium 8.8 mg/dL (8.3-10.6); Calcium (Corrected) 8.8 mg/dL (8.5-10.1); Carbon Dioxide 26.5 mMol/L (20.0-31.0); Chloride 104 mMol/L (98-107); Estimated Creatinine Clearance 64.1 mL/min (>60); Globulin 2.2 gm/dL (2.3-3.5); Glucose 113 mg/dL (74-106); Magnesium 2.1 mg/dL (1.6-2.6); Osmolality,Calculated 277 (275-295); Phosphorous 4.2 mg/dL (2.4-5.1); Potassium 4.9 mMol/L (3.4-5.1); Sodium 138 mMol/L (136-145); Total Protein 6.2 gm/dL (5.7-8.2); eGFR > 60 See Note
[2024-07-31] MEDS: ENOXAPARIN SOD INJ 40 MG/0.4 ML SYRINGE SC (08:57)
[2024-07-31] MEDS: amLODIPine BESYLATE 5 MG TABLET 10 MG PO (09:00)
[2024-07-31] MEDS: FOLIC ACID 1 MG TABLET PO ×2 (09:01→20:51)
[2024-07-31] MEDS: THIAMINE 100 MG TABLET PO ×2 (09:01→20:51)
[2024-07-31] MEDS: ACETAMINOPHEN 325 MG TABLET 650 MG PO ×2 (09:02→20:51)
[2024-07-31 11:34] LABS: Cocci Serology, IgG Negative (Negative)
[2024-07-31] MEDS: LORazepam 0.5 MG TABLET PO ×2 (13:58→20:51)
--- NOTE | 2024-07-31 15:29 | PC.SS ---
SS met with patient regarding his d/c plan.? Pt is alert/oriented.? Pt was admitted for URTI.? Pt confirmed demographic and contact information is correct on facesheet.? Pt resides with son.? Pt ambulates independently without assistance or DME.? Pt is ok with all ADLs.? Pt does not utilizes O2 at home.? Pt is currently on 2 liters of O2.? SS provided verbal d/c options for home or SNF.? Pt refused SNF.? Pt named his dtrZee medical decision maker if he is unable.? Patient?s choice is to return home upon d/c.? Pt states not diabetic and is not on dialysis.? Pt states he followed up with PCP 3 weeks ago? D/C plan:? Return home Next of Kin:? Zee Banks dtr, phone# [phone] or Edgar Lebron, mom, phone# [phone] PCP:? [facility] Address:? Correct on facesheet
--- NOTE | 2024-07-31 18:56 | ESPR_ITS ---
Documentation for date of: 07/31/24 Subjective Subjective Interval history: Patient was seen and examined by the bedside. No acute overnight events. Patient reports his breathing has improved, reported having some cough with phlegm. Saturates well on 2L NC. Will continue to try to wean him off the oxygen. Exam Vital Signs Temp Pulse Resp BP Pulse Ox O2 Del Method O2 Flow Rate 99 F 104 H 18 136/87 H 97 Nasal Cannula 1 07/31/24 12:00 07/31/24 18:39 07/31/24 18:39 07/31/24 12:00 07/31/24 18:39 07/31/24 12:00 07/31/24 18:39 Narrative Exam Physical Exam General: Awake and in no acute distress. Conversational and non-toxic appearing. HEENT: Normocephalic, atraumatic, mucous membranes moist. Heart: Regular rate and rhythm, no murmurs. Lungs: Mild diffuse wheezing. Abdomen: Soft, nondistended, nontender, positive bowel sounds. ?No guarding or rebound tenderness. Neurologic: Alert and oriented x3, no gross neurological deficit, and patient able to move all 4 extremities. Extremities: No edema. Skin: No rash or ecchymoses. Objective Labs 08/01/24 05:45 08/01/24 05:45 Labs: Laboratory Results - last 24 hr 07/30/24 07/31/24 05:44 04:59 WBC 7.9 D RBC 4.18 L Hgb 13.4 L Hct 39.1 L MCV 94 MCH 32.1 MCHC 34.3 RDW Std Deviation 50.4 H Plt Count 321 D Neut % (Auto) 70 Lymph % (Auto) 13 [place] % (Auto) 17 H Eos % (Auto) 0 Baso % (Auto) 0 Neut # (Auto) 5.5 Lymph # (Auto) 1.0 [place] # (Auto) 1.3 H Eos # (Auto) 0.0 Baso # (Auto) 0.0 Immature Gran # (Auto) 0.03 H Absolute Nucleated RBC 0.00 Immature Gran % 0 Nucleated RBC % 0 Sodium 138 Potassium 4.9 Chloride 104 Carbon Dioxide 26.5 Anion Gap 8 BUN 14 Creatinine 1.0 Estim Creat Clear Calc 64.1 eGFR > 60 BUN/Creatinine Ratio 14 Glucose 113 H D Calculated Osmolality 277 Calcium 8.8 Corrected Calcium 8.8 Phosphorus 4.2 Magnesium 2.1 Total Bilirubin 0.2 L AST 45 H ALT 26 Alkaline Phosphatase 81 Total Protein 6.2 Albumin 4.0 Globulin 2.2 L Albumin/Globulin Ratio 1.8 Coccidioides IgG Ab Negative Quality Measures Quality Measures VTE prophylaxis Advance care planning discussed with:: other Assessment & Plan Assessment Current Active Medications: Generic Name Dose Route Start Last Admin Trade Name Freq PRN Reason Stop Dose Admin Acetaminophen 650 mg 07/29/24 22:27 07/30/24 15:32 Acetaminophen 325 Mg Tablet PO 08/28/24 22:26 650 mg Q6H PRN Administration Fever >101.5 Acetaminophen 650 mg 07/29/24 22:32 07/31/24 09:02 Acetaminophen 325 Mg Tablet PO 08/28/24 22:31 650 mg Q6H PRN Administration PAIN SCALE 1-3 (mild Albuterol/Ipratropium 3 ml 07/29/24 23:00 07/31/24 18:38 Albuterol/Ipratropium (Duoneb) Rt Charo 3 Ml Nebu INH 08/28/24 22:59 3 ml Q4HRRT RYAN Administration Amlodipine Besylate 10 mg 07/30/24 09:00 07/31/24 09:00 Amlodipine Besylate 5 Mg Tablet PO 08/29/24 08:59 10 mg QDAY RYAN Administration Enoxaparin Sodium 40 mg 07/30/24 09:00 07/31/24 08:57 Enoxaparin Sod Inj 40 Mg/0.4 Ml Syringe SC 08/13/24 08:59 40 mg QDAY RYAN Administration Folic Acid 1 mg 07/30/24 09:00 07/31/24 09:01 Folic Acid 1 Mg Tablet PO 08/04/24 08:59 1 mg BID RYAN Administration Levofloxacin/Dextrose 750 mg in 150 mls @ 100 mls/hr 07/30/24 21:00 07/30/24 23:07 Levaquin Ivpb IV 08/06/24 20:59 Infused HS RYAN Infusion Lorazepam 0.5 mg 07/29/24 23:18 07/31/24 13:58 Lorazepam 0.5 Mg Tablet PO 08/03/24 23:17 0.5 mg Q4HR PRN Administration CIWA Score 2-6 Lorazepam 1 mg 07/29/24 23:18 Lorazepam 2 Mg/Ml Vial IV X1 PRN Breakthrough Agitation Lorazepam 1 mg 07/29/24 23:18 Lorazepam 0.5 Mg Tablet PO 08/03/24 23:17 Q4HR PRN CIWA SCORE 7-11 Lorazepam 2 mg 07/29/24 23:18 Lorazepam 0.5 Mg Tablet PO 08/03/24 23:17 Q4HR PRN CIWA SCORE 12-15 Methylprednisolone Sodium Succinate 40 mg 07/31/24 09:00 07/31/24 08:59 Methylprednisolone Sod Succ 40 Mg Vial IVP 08/07/24 08:59 40 mg QDAY RYAN Administration Ondansetron HCl 4 mg 07/29/24 22:27 Ondansetron Inj 2 Mg/Ml Inj 2 Ml IV 08/28/24 22:26 Q6H PRN NAUSEA OR VOMITING Protocol Sodium Chloride 3 ml 07/29/24 22:27 Sodium Chloride Rt Charo 0.9% 3 Ml Nebu INH 08/28/24 22:26 PRN PRN SOLN Thiamine HCl 100 mg 07/29/24 23:30 07/31/24 09:01 Thiamine 100 Mg Tablet PO 08/03/24 23:29 100 mg BID RYAN Administration Trazodone HCl 50 mg 07/30/24 21:00 07/30/24 21:37 Trazodone Hcl 50 Mg Tablet PO 08/29/24 20:59 50 mg HS RYAN Administration Plan Summary: a 64 years old male patient with past medical hx of asthma questionable COPD not on oxygen at home, presented to the ED due to SOB for the past 10 days. Patient reported that he started to feel SOB and wheezing for the past one week and a half, he mentioned that he has been using his inhalers and nebulizer however with no benefit. Patient was admitted for Tx of AHRF 2/2 COPD exacerbation. #Acute hypoxic respiratory failure, improving #COPD exacerbation #History of asthma Patient presented with worsening wheezing over that past 3 moths since the winter started. He reported that he was diagnosed with asthma since he was 7 years old. He reported that he recently was diagnosed with COPD 2/2 to his weed smoking for the past 40 years. Now he came with SOB and wheezing, not relieved by inhalers and keep worsening especially for the last week. Met sepsis criteria with fever, tachycardia and temp, His boss was recently returned from the [facility] and has been experiencing similar symptoms. No hx of incarceration or TB exposure, COVID, RSV, and Influenza A&B were negative. CT chest non contrast was ordered as patient was endorsing some weight loss - negative for fibrosis, masses, positive for pneumonia. Plan: - O2 as needed to keep O2 88-92% - Duonebs Q4HRRT - SolMedrol 80mg Qday - IV levofloxacin 750mg Qday - Cocci screening - MRSA screening - Quantiferon TB screening - F/U on the Blood c/s, sputum c/s, urine c/s #History of hypertension - Continue home amlodipine 10 mg qday #History of alcohol use disorder - [facility] protocol Hospital Maintenance: FEN:Cardiac diet DVT ppx:Enoxaparin GI ppx: Not indicated IV lines:PIV [place]:No Code status:Full Dispo:Med-Tele Plan of care discussed with attending Dr. Mortensen, PGY-[address] Wills and PGY-[address] Kirk. Jerrica Reyes MD, PGY 1. Attending Provider Attestation/Addendum Janet, Keyla Mortensen, , attest that I was physically present for the levin portions of the service and evaluated the patient with the resident and I reviewed and discussed the case with the resident and agree with the resident's findings and plans of care as documented above Patient seen and evaluated this AM. He is currently on 2L/NC. No acute events overnight. He reports feeling improved. Patient has mild rhonchi in right lung miranda. CT chest shows mild nodular parenchymal disease consistent with right base pneumonia. WIll continue IV abx and wean patient off supplmental O2. Will obtain O2 walk test in AM. Anticipate DC in AM in next 24-48h if patient condition continues to improve.
[2024-07-31] MEDS: LEVOFLOXACIN/D5W 750MG IVPB 750 MG/150 ML BAG 100 MG IV (20:50)
[2024-07-31] MEDS: traZODone HCL 50 MG TABLET PO (20:51)
--- NOTE | 2024-07-31 22:03 | PC.NURSE ---
6 minute walk for oxygen evaluation done, patient currently on 1 L O2 NC at 94-95%. During walk O2 off, patient on room air, patient's O2 went down the lowest 90%. During walk patient states he is not feeling SOB or having a hard time breathing, stating he feels fine. Inform Dr. Serna, no new orders received.
[2024-08-01] VITALS (13 sets, daily range): BP systolic 112–138; BP diastolic 75–90; PULSE 87–107; RESP 14–98; TEMP 36.2–36.9; O2SAT 87–98
[2024-08-01] MEDS: ALBUTEROL/IPRATROPIUM (Duoneb) RT SOL 3 ML NEBU INH ×4 (02:28→15:33)
[2024-08-01 06:00] LABS: Basophils % (Auto) 1 % (0-2.5); Eosinophils % (Auto) 0 % (0-10); Hematocrit 43.7 % (41.0-53.0); Hemoglobin 14.8 g/dL (13.5-16.0); Immature Granulocytes % (Auto) 0 % (0-0); Immature Granulocytes Auto 0.02 Thou/mm3 (0.00-0.00); Lymphocytes # (Auto) 1.4 Thou/mm3 (1.0-4.8); Lymphocytes % (Auto) 27 % (10-50); Mean Corpuscular HGB Conc 33.9 g/dl (31.0-37.0); Mean Corpuscular Hemoglobin 32.1 pg (25.0-35.0); Mean Corpuscular Volume 95 fL (80-100); Monocytes # (Auto) 0.9 Thou/mm3 (0.0-0.8); Monocytes % (Auto) 16 % (0-12); Neutrophils # (Auto) 2.9 Thou/mm3 (1.8-7.7); Neutrophils % (Auto) 55 % (37-80); Nucleated Red Blood Cell % 0 /100 WBC (0); Platelet Count 280 Thou/mm3 (140-440); Red Blood Count 4.61 Miln/mm3 (4.50-5.90); White Blood Count 5.2 Thou/mm3 (3.8-10.6)
[2024-08-01 06:50] LABS: Alanine Aminotransferase 46 U/L (10-49); Albumin, Serum 4.1 gm/dL (3.4-4.8); Albumin/Globulin Ratio 1.7 (1.2-2.2); Alkaline Phosphatase 85 U/L (46-116); Anion Gap 7 (7-16); Aspartate Amino Transferase 71 U/L (0-34); BUN/Creatinine Ratio 15 Ratio (12-20); Bilirubin,Total 0.3 mg/dL (0.3-1.2); Blood Urea Nitrogen 16 mg/dL (9-23); Carbon Dioxide 27.7 mMol/L (20.0-31.0); Chloride 99 mMol/L (98-107); Creatinine (Component) 1.1 mg/dL (0.6-1.3); Estimated Creatinine Clearance 58.2 mL/min (>60); Globulin 2.4 gm/dL (2.3-3.5); Glucose 99 mg/dL (74-106); Magnesium 1.9 mg/dL (1.6-2.6); Osmolality,Calculated 269 (275-295); Phosphorous 3.8 mg/dL (2.4-5.1); Potassium 4.8 mMol/L (3.4-5.1); Sodium 134 mMol/L (136-145); Total Protein 6.5 gm/dL (5.7-8.2); eGFR > 60 See Note
[2024-08-01 07:23] LABS: Legionella Ag, EIA, Urine* NOT DETECTED
[2024-08-01] MEDS: amLODIPine BESYLATE 5 MG TABLET 10 MG PO (08:37)
[2024-08-01] MEDS: THIAMINE 100 MG TABLET PO (08:38)
[2024-08-01] MEDS: ENOXAPARIN SOD INJ 40 MG/0.4 ML SYRINGE SC (08:38)
[2024-08-01] MEDS: FOLIC ACID 1 MG TABLET PO (08:38)
[2024-08-01] MEDS: MUPIROCIN OINT 2% 15 GM TUBE TOP (14:32)
--- NOTE | 2024-08-01 16:12 | ESDS_ITS ---
<Statement entered by Lilly Wills MD - 08/02/24 08:29> Patient was seen and examined by me personally. I have reviewed the below documentation by the team resident and agree with its findings with any exceptions as below. Discharge plan was discussed with the attending, Dr. Lawson. Lilly Wills, PGY-2 Planned Discharge Date 08/01/24 DS: Providers Provider Date of admission: 07/30/24 14:31 Primary care physician: Physician No Primary/Family Admitting Provider: Aram Marroquin MD Attending Provider on Admission: Kimberly Lawson MD Attending Provider on DC: Jerrica Reyes MD Discharging Provider: Jerrica Reyes MD DS: Diagnosis Problem List Completed Was Problem List Reviewed/Reconciled?: Yes Hospital Course Hospital Course Hospital course: Patient is a 64-year-old male with a previous medical history of asthma who was brought to the ED 07/29/2024 on due to shortness of breath that started 10 days before. He has been using inhalers and nebulizers with no active, he went to wi s PCP, was prescribed prednisone for 5 days with mild improvement however then his symptoms worsened again. In the ED patient was tachycardic, tachypneic, had a fever of 100.4, saturating 89 on room air. Chest x-ray showed bronchiolitis. He reported that he smokes weed daily for 40 years. On examination there were wheezes bilaterally, but he was able to speak with full sentences. He was started on DuoNebs inhalations, solumedrol, levofloxacin. His shortness of breath has significantly improved, his oxygen requirements went down and he successfully was able to walk with saturation in 90s. Patient was seen and examined by the bedside and was medically cleared for discharge home with instructions. Hospital diagnoses: #Acute hypoxic respiratory failure, resolved #COPD exacerbation #History of asthma #History of hypertension #History of alcohol use disorder Discharge Recommendations: -Follow up with PCP within 1 week of discharge -Follow up the results of Quantiferon test with your PCP -If you don't have a PCP, you can make an appointment at the [facility]: [address] [place] [address] -Continue levofloxacin 750 mg (antibiotic) for 5 more days for pneumonia -Continue rest of medications as previously prescribed -Start taking trelegy one puff daily for asthma maintenance therapy -Return to the ED or call EMS if symptoms return and/or worsen. Plan of care discussed with attending Dr. Lawson, PGY-[address] Wills and PGY-[address] Kirk. Jerrica Reyes MD, PGY 1. Time Spent with Patient Time attestation: Total time spent providing and/or coordinating discharge services: Exam Vital Signs Temp Pulse Resp BP Pulse Ox O2 Del Method O2 Flow Rate 98.4 F 97 24 H 138/87 H 96 Room Air 2 08/01/24 12:00 08/01/24 15:35 08/01/24 15:35 08/01/24 12:00 08/01/24 15:35 08/01/24 12:00 08/01/24 12:00 Narrative Exam Physical Exam General: Awake and in no acute distress. Conversational and non-toxic appearing. HEENT: Normocephalic, atraumatic, mucous membranes moist. Heart: Regular rate and rhythm, no murmurs. Lungs: CTABL. Abdomen: Soft, nondistended, nontender, positive bowel sounds. ?No guarding or rebound tenderness. Neurologic: Alert and oriented x3, no gross neurological deficit, and patient able to move all 4 extremities. Extremities: No edema. Skin: No rash or ecchymoses. Discharge Plan Plan Patient Disposition: HOME (Self Care) Patient condition on transfer: Stable Care Plan Goals: Discharge Recommendations: -Follow up with PCP within 1 week of discharge -If you don't have a PCP, you can make an appointment at the [facility]: [address] [place] [address] -Continue levofloxacin 750 mg (antibiotic) for 5 more days for pneumonia -Continue rest of medications as previously prescribed -Start taking trelegy one puff daily for asthma maintenance therapy -Return to the ED or call EMS if symptoms return and/or worsen. Prescriptions/Referrals Prescriptions/Med Rec: New levofloxacin 750 mg tablet 750 mg PO Q24H 5 Days Qty: 5 0RF Trelegy Ellipta 100-62.5-25 mcg blister with device 1 inh inhalation QDAY 30 Days Qty: 60 1RF Continued albuterol sulfate 90 mcg/actuation Hfa Aerosol Inhaler 2 puff INHALATION Q4H PRN (Reason: SOB) loratadine [Claritin] 10 mg Tablet 10 mg PO QDAY amlodipine 10 mg tablet 10 mg PO QDAY Patient Comments: TAKE ONE TABLET BY MOUTH EVERY DAY FOR BLOOD PRESSURE montelukast 10 mg tablet 10 mg PO QDAY Patient Comments: TAKE ONE TABLET BY MOUTH EVERY EVENING FOR BREATHING Discontinued albuterol sulfate [Ventolin HFA] 90 mcg/actuation HFA aerosol inhaler 1 puff inhalation Q6H PRN (Reason: shortness of breath or wheezing) Qty: 6.7 0RF Referrals: No Primary/Family,Physician [Primary Care Provider] - Patient/Caregiver Discharge Instructions Education Materials: What Is Pneumonia?, Preventing Pneumonia, Treating Pneumonia, ED Pneumonia (Adult) Print Language: [place] Stand Alone Forms: Tish Award Info., Patient Portal Info Letter Discharge Order Discharge Orders: Discharge (Routine); Ordered 08/01/24 Ordered By: Lilly Wills Quality Discharge Quality Measures VTE prophylaxis Attestestation MD Attestation I attest that I was physically present for the evaluation, physical examination, lab and imaging review of the patient with the residents. I discussed the case with the residents and agree with the findings and plans of care as documented above. Kimberly Lawson MD
--- NOTE | 2024-08-01 16:35 | PC.NURSE ---
Patient walking around the unit tolerated well
== END 2024-08-01 16:20 | disposition home or self-care (01) | DRG 871 ==
LOC: SERX 22:57 → SERHOLD 23:02 → S3SX 07-30 05:36
PROVIDERS: Physician Assistant; Student in an Organized Health Care Education/Training Program; Admitting Provider Internal Medicine; Emergency Provider Emergency Medicine; Visit Provider Student in an Organized Health Care Education/Training Program
DX: A41.9 Sepsis, unspecified organism (principal); J18.9 Pneumonia, unspecified organism; J96.01 Acute respiratory failure with hypoxia; J44.1 Chronic obstructive pulmonary disease with (acute) exacerbation; J44.0 Chronic obstructive pulmonary disease with (acute) lower respiratory infection; J21.9 Acute bronchiolitis, unspecified; I10 Essential (primary) hypertension; R63.4 Abnormal weight loss; F10.10 Alcohol abuse, uncomplicated; F12.90 Cannabis use, unspecified, uncomplicated; Z68.24 Body mass index [BMI] 24.0-24.9, adult
CPT/HCPCS: 36415; 71045; 71250; 80053; 81001; 83605; 83735; 83880; 84100; 84145; 84439; 84443; 84484; 85025; 85379; 85610; 85652; 85730; 86140; 86331; 86480; 86635; 87040; 87081; 87086; 87205; 87400; 87449; 87634; 87811; 89220; 93005; 93225; 94640; 94644; 96365; 96366; 96368; 96374; 96375; 99285; A9270; G0378; J0131; J0456; J0696; J1100; J1650; J1956; J2919; J3475; J7030; J7050